=== PATIENT | female | born 1940 | race Caucasian/White ===

== ENCOUNTER 2016-06-22 19:33 | Emergency (ER) | payer MEDICARE ==
[~2016-06-22] VITALS: Ht 158.8 cm; Wt 80.0 kg
[~2016-06-22 19:33] MED LIST: AMLO5TAB22 PO; CARV12.5 PO; CLOP75 PO; COUM3TAB PO; IMDUR PO; LATA.005%O EACH EYE; LISI40TA PO; NEUR100C PO; NITR0.4S SL
[2016-06-22 19:34] VITALS: BP 231/106; PULSE 120; RESP 16; TEMP 97.6; O2SAT 94
[2016-06-22 19:48] VITALS: BP 188/85; PULSE 149; RESP 24; O2SAT 93
--- NOTE | 2016-06-22 20:20 | RADRPT ---
EXAM DATE/TIME: 06/22/2016 20:08 [facility] COMPARISON: CHEST SINGLE AP, October 06, 2015, 1:45. INDICATIONS : Chest pains. MEDICAL HISTORY : None. SURGICAL HISTORY : Stent placement less then 6 months ago. ENCOUNTER: Initial ACUITY: 1 day PAIN SCORE: 7/10 LOCATION: Bilateral upper back. FINDINGS: A single view of the chest demonstrates the lungs to be symmetrically aerated without evidence of mas s, infiltrate or effusion. The cardiomediastinal contours are unremarkable. Osseous structures are intact. CONCLUSION: The lungs are clear. Vishal Amado MD on June 22, 2016 at 20:18 Board Certified Radiologist. This report was verified electronically.
--- NOTE | 2016-06-22 20:29 | PD ---
HPI Chief Complaint: Respiratory Symptoms Time Seen by Provider: 19:50 Travel History International Travel<30 days: No Contact w/Intl Traveler<30days: No Traveled to known affect area: No History of Present Illness HPI 76-year-old female complains of chest pain and left upper back pain. Patient states that she was sitting down watching TV this evening when he started having feeling hot, weakness, and then sharp stabbing pain started on the left upper back with radiation to left front. Patient denies any fever coughing congestion. Patient states that the pain lasted about half an hour and resolved completely. Patient denies any chest pain now. Patient states that she still has some shortness of breath. Patient has history of atrial fibrillation is on Coumadin. Patient has history hypertension, elevated triglycerides. Patient states that she stopped smoking 3 years ago. Patient has history of CAD status post IN and stent placement. 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) Family History Family Myocardial Infarction: Yes Social History Alcohol Use: No Tobacco Use: No Substance Use: No Allergies-Medications (Allergen,Severity, Reaction): Coded Allergies: Niacin (Verified Adverse Reaction, Intermediate, flushing, 06/22/16) Tricor (Verified Adverse Reaction, Intermediate, myalgia, 06/22/16) Reported Meds & Prescriptions Reported Meds & Active Scripts Active Reported Isosorbide Mononitrate ER (Isosorbide Mononitrate) 30 Mg Jennifer 30 Mg PO DAILY Vitamin D3 (Cholecalciferol) 2,000 Unit Cap 4,000 Units PO DAILY Clopidogrel (Clopidogrel Bisulfate) 75 Mg Tab 75 Mg PO DAILY Latanoprost Opth Drops (Latanoprost) 0.005% Drops 1 Drop EACH EYE HS Refrigerate until opened. Gabapentin 100 Mg Cap 100 Mg PO QID Atorvastatin (Atorvastatin Calcium) 40 Mg Tab 40 Mg PO HS Lisinopril 40 Mg Tab 40 Mg PO DAILY Hydrochlorothiazide 25 Mg Tab 25 Mg PO DAILY Carvedilol 12.5 Mg Tab 12.5 Mg PO BID Amlodipine (Amlodipine Besylate) 5 Mg Tab 5 Mg PO DAILY Acetaminophen 500 Mg Cap 1,000 Mg PO Q4-6H PRN Warfarin 3 Mg Tab 4.5 Mg PO WE,FR Warfarin 3 Mg Tab 3 Mg PO DANIELS,MO,TU,THR,SA Review of Systems General / Constitutional: No: Fever Eyes: No: Visual changes HENT: No: Headaches Cardiovascular: Positive: Chest Pain or Discomfort Respiratory: Positive: Shortness of Breath Gastrointestinal: No: Abdominal Pain Genitourinary: No: Dysuria Musculoskeletal: No: Pain Skin: No Rash Neurologic: No: Weakness Psychiatric: No: Depression Endocrine: No: Polydipsia Hematologic/Lymphatic: No: Easy Bruising Physical Exam Narrative GENERAL: Well-nourished, well-developed patient. SKIN: Warm and dry. HEAD: Normocephalic. EYES: No scleral icterus. No injection or drainage. NECK: Supple, trachea midline. No JVD or lymphadenopathy. CARDIOVASCULAR: Irregularly irregular tachycardia rate and rhythm without murmurs, gallops, or rubs. RESPIRATORY: Breath sounds equal bilaterally. No accessory muscle use. GASTROINTESTINAL: Abdomen soft, non-tender, nondistended. MUSCULOSKELETAL: No cyanosis, or edema. BACK: Nontender without obvious deformity. No CVA tenderness. Neurologic exam normal. Data Data Last Documented VS Vital Signs Date Time Temp Pulse Resp B/P Pulse Ox O2 Delivery O2 Flow Rate FiO2 06/22/16 21:34 116 24 153/92 93 Room Air 06/22/16 19:34 97.6 Orders Electrocardiogram (06/22/16 19:58) Complete Blood Count With Diff (06/22/16 19:58) Comprehensive Metabolic Panel (06/22/16 19:58) Creatine Kinase (Cpk) (06/22/16 19:58) Troponin I (06/22/16 19:58) B-Type Natriuretic Peptide (06/22/16 19:58) Prothrombin Time / Inr (Pt) (06/22/16 19:58) Act Partial Throm Time (Ptt) (06/22/16 19:58) Urinalysis - C+S If Indicated (06/22/16 19:58) D-Dimer (1/28/17 19:58) Thyroid Stimulating Hormone (06/22/16 19:58) Chest, Single Ap (06/22/16 19:58) Iv Access Insert/Monitor (06/22/16 19:58) Ecg Monitoring (06/22/16 19:58) Oximetry (06/22/16 19:58) Ct Pulmonary Angiogram (06/22/16 19:59) Diltiazem Inj (Cardizem Inj) (06/22/16 20:30) Iodixanol 320 Inj (Rad Ct) (Visipaque 32 (06/22/16 22:55) Labs Laboratory Tests Test 06/22/16 06/22/16 20:08 21:49 White Blood Count 7.5 TH/MM3 Red Blood Count 4.06 MIL/MM3 Hemoglobin 12.6 GM/DL Hematocrit 35.8 % Mean Corpuscular Volume 88.3 FL Mean Corpuscular Hemoglobin 31.0 PG Mean Corpuscular Hemoglobin 35.1 % Concent Red Cell Distribution Width 13.8 % Platelet Count 226 TH/MM3 Mean Platelet Volume 8.3 FL Neutrophils (%) (Auto) 54.8 % Lymphocytes (%) (Auto) 37.2 % Monocytes (%) (Auto) 4.8 % Eosinophils (%) (Auto) 2.5 % Basophils (%) (Auto) 0.7 % Neutrophils # (Auto) 4.1 TH/MM3 Lymphocytes # (Auto) 2.8 TH/MM3 Monocytes # (Auto) 0.4 TH/MM3 Eosinophils # (Auto) 0.2 TH/MM3 Basophils # (Auto) 0.1 TH/MM3 CBC Comment DIFF FINAL Differential Comment Prothrombin Time 22.1 SEC Prothromb Time International 1.9 RATIO Ratio Activated Partial 34.0 SEC Thromboplast Time D-Dimer Quantitative (PE/DVT) 0.36 MG/L FEU Sodium Level 137 MEQ/L Potassium Level 3.8 MEQ/L Chloride Level 103 MEQ/L Carbon Dioxide Level 25.9 MEQ/L Anion Gap 8 MEQ/L Blood Urea Nitrogen 35 MG/DL Creatinine 1.43 MG/DL Estimat Glomerular Filtration 35 ML/MIN Rate Random Glucose 195 MG/DL Calcium Level 9.0 MG/DL Total Bilirubin 0.2 MG/DL Aspartate Amino Transf 16 U/L (AST/SGOT) Alanine Aminotransferase 23 U/L (ALT/SGPT) Alkaline Phosphatase 89 U/L Total Creatine Kinase 72 U/L Troponin I LESS THAN 0.02 NG/ML B-Type Natriuretic Peptide 150 PG/ML Total Protein 8.1 GM/DL Albumin 3.8 GM/DL Thyroid Stimulating Hormone 1.510 uIU/ML 3rd Gen Urine Color LIGHT-YELLOW Urine Turbidity CLEAR Urine pH 5.5 Urine Specific [place] 1.010 Urine Protein 30 mg/dL Urine Glucose (UA) NEG mg/dL Urine Ketones NEG mg/dL Urine Occult Blood NEG Urine Nitrite NEG Urine Bilirubin NEG Urine Urobilinogen LESS THAN 2.0 MG/DL Urine Leukocyte Esterase NEG Urine RBC 1 /hpf Urine WBC 1 /hpf Urine Squamous Epithelial <1 /hpf Cells Urine Mucus FEW /lpf Microscopic Urinalysis Comment CULT NOT INDICATED MDM Medical Decision Making Medical Screen Exam Complete: Yes Emergency Medical Condition: Yes Interpretation(s) 2027 PM. EKG shows atrial fibrillation with RVR rate 125. 23:[address] Angiography 06/22/161958 Signed Impressions: Service Date/Time: Wednesday, June 22, 2016 22:49 - CONCLUSION: The study is negative for pulmonary embolism. Vishal Amado MD Chest X-Ray 06/22/161957 Signed Impressions: Service Date/Time: Wednesday, June 22, 2016 20:08 - CONCLUSION: The lungs are clear. Vishal Amado MD 23:22 PM. CBC within normal limit. BUN 35. Creatinine 1.43. Cardiac enzymes are normal. BNP 150. INR 1.9. UA is negative. Differential Diagnosis Differential diagnosis including musculoskeletal, pleurisy, angina, IN, PE, pneumothorax. Narrative Course 76-year-old female with short period of sharp stabbing pain in the left upper back with radiation to left chest which has resolved since then. Patient has history of atrial fibrillation on Coumadin. Patient is tachycardic with A. fib and RVR. Patient has elevated blood pressure. Cardizem 10 g IV given. Diagnosis Primary Impression: Atypical chest pain Additional Impressions: Atrial fibrillation with RVR Uncontrolled hypertension Patient Instructions: General Instructions Additional Instructions: Continue with medications as directed. Follow-up with personal physician. Return if persistent elevated blood pressure, elevated pulse, chest pain shortness of breath. Med/Other Pt SpecificInfo: No Change to Meds Disposition: 01 DISCHARGE HOME Condition: Stable Vish Hart MD Jun 22, 2016 20:29
[2016-06-22] MEDS ORDERED: DILTIAZEM HCL 25 MG/5 ML VIAL IV ONE (20:30)
[2016-06-22 20:35] VITALS: BP 144/72; PULSE 100; RESP 24; O2SAT 92
[2016-06-22 21:13] LABS: AUTOMATED NEUTROPHIL # 4.1 TH/MM3 (1.8-7.7); BASOPHIL # 0.1 TH/MM3 (0-0.2); BASOPHIL % 0.7 % (0.0-2.0); EOSINOPHIL # 0.2 TH/MM3 (0-0.4); EOSINOPHIL % 2.5 % (0.0-4.0); HEMATOCRIT 35.8 % (35.0-46.0); HEMO FLAGS DIFF FINAL; LYMPH % 37.2 % (9.0-44.0); LYMPHOCYTE # 2.8 TH/MM3 (1.0-4.8); MEAN CELL VOLUME 88.3 FL (80.0-100.0); MEAN CORPUSCULAR HGB CONC 35.1 % (32.0-36.0); MONO % 4.8 % (0.0-8.0); NEUT % 54.8 % (16.0-70.0); PLATELET COUNT 226 TH/MM3 (150-450); RED BLOOD COUNT 4.06 MIL/MM3 (4.00-5.30); RED CELL DISTRIBUTION WIDTH 13.8 % (11.6-17.2); WHITE BLOOD COUNT 7.5 TH/MM3 (4.0-11.0)
[2016-06-22 21:34] VITALS: BP 153/92; PULSE 116; RESP 24; O2SAT 93
[2016-06-22 21:38] LABS: INTERNATIONAL NORMALIZED RATIO 1.9 RATIO; PROTHROMBIN TIME - PATIENT 22.1 SEC (9.8-11.6)
[2016-06-22] MEDS ORDERED: ACET500C PO (22:03)
[2016-06-22] MEDS ORDERED: HYDR25TA5 PO (22:03)
[2016-06-22] MEDS ORDERED: CLOP75TA PO (22:03)
[2016-06-22] MEDS ORDERED: WARF-58 PO ×2 (22:03)
[2016-06-22] MEDS ORDERED: LISI40TA PO (22:03)
[2016-06-22] MEDS ORDERED: LATA0.002 EACH EYE (22:03)
[2016-06-22] MEDS ORDERED: ATOR40TA16 PO (22:03)
[2016-06-22] MEDS ORDERED: CARV12.52 PO (22:03)
[2016-06-22] MEDS ORDERED: GABA100C4 PO (22:03)
[2016-06-22] MEDS ORDERED: ISOS30TA3 PO (22:03)
[2016-06-22] MEDS ORDERED: AMLO5TAB2 PO (22:03)
[2016-06-22] MEDS ORDERED: VITA2000 PO (22:03)
[2016-06-22 22:18] LABS: ALKALINE PHOSPHATASE 89 U/L (45-117); ALT (GPT) 23 U/L (10-53); ANION GAP 8 MEQ/L (5-15); AST (GOT) 16 U/L (15-37); BICARBONATE 25.9 MEQ/L (21.0-32.0); BLOOD UREA NITROGEN 35 MG/DL (7-18); CHLORIDE 103 MEQ/L (98-107); GLOMERULAR FILTRATION RATE 35 ML/MIN (>89); POTASSIUM 3.8 MEQ/L (3.5-5.1); SODIUM (NA) 137 MEQ/L (136-145); TOTAL BILIRUBIN ADULT 0.2 MG/DL (0.2-1.0)
[2016-06-22 22:19] LABS: CREATINE KINASE 72 U/L (26-192)
[2016-06-22 22:53] LABS: BLOOD, URINE NEG (NEG); COMMENT (UR) CULT NOT INDICATED; CULTURE IF INDICATED CULT NOT INDICATED; GLUCOSE,URINE NEG (NEG); KETONE, URINE NEG (NEG); MUCUS URINE FEW /lpf (OCC); NITRITE,URINE NEG (NEG); PH, URINE 5.5 (5.0-8.5); SQUAMOUS EPITHELIAL CELL URINE <1 /hpf (0-5); URINE COLOR LIGHT-YELLOW (YELLW/STRAW)
[2016-06-22] MEDS ORDERED: IODIXANOL 320 MG/ML 10 ML VIAL (for Rad CT) IV ONE (22:55)
--- NOTE | 2016-06-22 23:06 | RADRPT ---
EXAM DATE/TIME: 06/22/2016 22:49 [facility] COMPARISON: CHEST SINGLE AP, June 22, 2016, 20:08. INDICATIONS : Seizures for 5 days with falls. Shortness of breath. IV CONTRAST: 50 cc Visipaque (iodixanol) IV RADIATION DOSE: 16.97 CTDIvol (mGy) MEDICAL HISTORY : Myocardial infarction. Hypertension. Schizophrenia. CVA. SURGICAL HISTORY : Tubal ligation. Coronary artery stent.Appendectomy.Cardiac catherization. ENCOUNTER: Initial ACUITY: 4 - 6 days PAIN SCALE: 0/10 LOCATION: chest TECHNIQUE: Volumetric scanning of the chest was performed using a pulmonary embolism protocol MIP images were re constructed. Using automated exposure control and adjustment of the mA and/or kV according to patien t size, radiation dose was kept as low as reasonably achievable to obtain optimal diagnostic quality images. FINDINGS: PULMONARY ARTERIES: No filling defects are seen in the pulmonary arteries through the segmental level. LUNGS: No gross abnormality; there is some respiratory motion artifact creating double densities in the ante rior lower lungs and cannot exclude small infiltrates in that area. PLEURAE: There is no pleural thickening or pleural effusion. MEDIASTINUM: There is good visualization of the great vessels of the middle mediastinum. No evidence of mediastin al or hilar adenopathy/mass. CONCLUSION: The study is negative for pulmonary embolism. Vishal Amado MD on June 22, 2016 at 23:03 Board Certified Radiologist. This report was verified electronically.
[2016-06-22 23:43] VITALS: BP 180/77
--- NOTE | 2016-06-23 12:33 | EKG ---
Date Performed: 06/22/2016 Time Performed: 20:12:15 PTAGE: 76 years EKG: ATRIAL FIBRILLATION WITH RAPID VENTRICULAR RESPONSE NONSPECIFIC ST & T-WAVE ABNORMALITY ABN ORMAL RHYTHM ECG PREVIOUS TRACING : 10/06/2015 06.23 Compared to previous tracing, atrial fibrillation with rVR is new. Nonspecific ST-T wave changes are also now noted. DOCTOR: Felipe Gerber Interpretating Date/Time 06/23/2016 12:32:34
== END 2016-06-22 23:59 | disposition home or self-care (01) ==
LOC: NEPE 19:33
DX: R07.89 Other chest pain (principal); I48.91 Unspecified atrial fibrillation; I10 Essential (primary) hypertension; I25.2 Old myocardial infarction; R06.02 Shortness of breath; Z79.01 Long term (current) use of anticoagulants; Z87.891 Personal history of nicotine dependence
CPT/HCPCS: 71010; 71275; 80053; 81001; 82550; 83880; 84443; 84484; 85025; 85379; 85610; 85730; 93005; 96374; 99285; Q9967

== ENCOUNTER 2016-12-01 14:55 | Emergency (ER) | payer MEDICARE ==
[~2016-12-01] VITALS: Ht 160 cm; Wt 80.0 kg
[~2016-12-01 14:55] MED LIST changes: +ACET500C PO; +AMLO5TAB2 PO; -AMLO5TAB22 PO; +ATOR40TA16 PO; -CARV12.5 PO; +CARV12.52 PO; -CLOP75 PO; +CLOP75TA PO; -COUM3TAB PO; +GABA100C4 PO; +HYDR25TA5 PO; -IMDUR PO; +ISOS30TA3 PO; -LATA.005%O EACH EYE; +LATA0.002 EACH EYE; -NEUR100C PO; -NITR0.4S SL; +VITA2000 PO; +WARF-58 PO
[2016-12-01 14:59] VITALS: BP 202/85; PULSE 98; RESP 22; TEMP 98.5; O2SAT 95
[2016-12-01 15:32] VITALS: BP 177/81; PULSE 93; RESP 16; O2SAT 96
[2016-12-01] MEDS ORDERED: MORPHINE SULFATE 4 MG/ML INJ IV PUSH ONE (16:00)
[2016-12-01] MEDS ORDERED: ONDANSETRON HCL 4 MG/2 ML VIAL IV ONE (16:00)
--- NOTE | 2016-12-01 16:17 | PD ---
HPI Chief Complaint: Pain: Acute or Chronic Time Seen by Provider: 15:37 Travel History International Travel<30 days: No Contact w/Intl Traveler<30days: No Traveled to known affect area: No History of Present Illness HPI The patient was seen and examined in the presence of the nurse. This patient complains of right sided breast pain. She's had several months of intermittent right nipple bleeding. She does follow with breast surgeon Dr. Valdes. The patient reports that Dr. Valdes did some biopsies that did not reveal any cancer. The patient does not know why she's had the bleeding problem from the nipple. She is on Coumadin for cardiac reasons. He complains of 2 days of breast swelling and engorgement and pain. She's had no fever or redness or warmth of the breast. Symptoms severity is moderate. No alleviating factors. 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) Family History Family Myocardial Infarction: Yes Social History Alcohol Use: No Tobacco Use: No Substance Use: No Allergies-Medications (Allergen,Severity, Reaction): Coded Allergies: Niacin (Verified Adverse Reaction, Intermediate, flushing, 12/01/16) Tricor (Verified Adverse Reaction, Intermediate, myalgia, 12/01/16) Reported Meds & Prescriptions Reported Meds & Active Scripts Active Percocet (Oxycodone-Acetaminophen) 5-325 mg Tab 1 Tab PO Q6H PRN Bactrim DS (Sulfamethoxazole-Trimethoprim) 800-160 Mg Tab 1 Tab PO BID Reported Isosorbide Mononitrate ER (Isosorbide Mononitrate) 30 Mg Jennifer 30 Mg PO DAILY Vitamin D3 (Cholecalciferol) 2,000 Unit Cap 4,000 Units PO DAILY Clopidogrel (Clopidogrel Bisulfate) 75 Mg Tab 75 Mg PO DAILY Latanoprost Opth Drops (Latanoprost) 0.005% Drops 1 Drop EACH EYE HS Refrigerate until opened. Gabapentin 100 Mg Cap 100 Mg PO QID Atorvastatin (Atorvastatin Calcium) 40 Mg Tab 40 Mg PO HS Lisinopril 40 Mg Tab 40 Mg PO DAILY Hydrochlorothiazide 25 Mg Tab 25 Mg PO DAILY Carvedilol 12.5 Mg Tab 12.5 Mg PO BID Amlodipine (Amlodipine Besylate) 5 Mg Tab 5 Mg PO DAILY Acetaminophen 500 Mg Cap 1,000 Mg PO Q4-6H PRN Warfarin 3 Mg Tab 4.5 Mg PO WE,FR Warfarin 3 Mg Tab 3 Mg PO DANIELS,MO,TU,THR,SA Review of Systems General / Constitutional: No: Fever Eyes: No: Visual changes HENT: No: Headaches Cardiovascular: No: Chest Pain or Discomfort Respiratory: No: Shortness of Breath Gastrointestinal: No: Abdominal Pain Genitourinary: No: Dysuria Musculoskeletal: Positive: Pain Skin: No Rash Neurologic: No: Weakness Psychiatric: No: Depression Endocrine: No: Polydipsia Hematologic/Lymphatic: No: Easy Bruising Physical Exam Narrative GENERAL: Well-nourished, well-developed patient with right breast pain and swelling . SKIN: Focused skin assessment reveals no rash and nodules. Skin is Warm and dry. HEAD: Atraumatic. Normocephalic. EYES: Pupils equal and round. No scleral icterus. No injection or drainage. ENT: No nasal bleeding or discharge. Mucous membranes pink and moist. NECK: Trachea midline. No JVD. CARDIOVASCULAR: Regular rate and rhythm. No murmur appreciated. RESPIRATORY: No accessory muscle use. Clear to auscultation. Breath sounds equal bilaterally. GASTROINTESTINAL: Abdomen soft, non-tender, nondistended. Hepatic and splenic margins not palpable. MUSCULOSKELETAL: No obvious deformities. No clubbing. No cyanosis. No edema. NEUROLOGICAL: Awake and alert. No obvious cranial nerve deficits. Motor grossly within normal limits. Normal speech. PSYCHIATRIC: Appropriate mood and affect; insight and judgment normal. Breast: Right breast is swollen and engorged and tender compared to the left. There is no erythema or warmth or sign of infection. No discharge from the nipple. Data Data Last Documented VS Vital Signs Date Time Temp Pulse Resp B/P Pulse Ox O2 Delivery O2 Flow Rate FiO2 12/01/16 15:32 93 16 177/81 96 Room Air 12/01/16 14:59 98.5 Orders Iv Access Insert/Monitor (12/01/16 15:59) Complete Blood Count With Diff (12/01/16 15:59) Prothrombin Time / Inr (Pt) (12/01/16 15:59) Ondansetron Inj (Zofran Inj) (12/01/16 16:00) Morphine Inj (Morphine Inj) (12/01/16 16:00) Labs Laboratory Tests Test 12/01/16 16:10 White Blood Count 16.2 TH/MM3 Red Blood Count 4.47 MIL/MM3 Hemoglobin 13.0 GM/DL Hematocrit 39.9 % Mean Corpuscular Volume 89.3 FL Mean Corpuscular Hemoglobin 29.0 PG Mean Corpuscular Hemoglobin 32.5 % Concent Red Cell Distribution Width 13.0 % Platelet Count 234 TH/MM3 Mean Platelet Volume 8.5 FL Neutrophils (%) (Auto) 84.9 % Lymphocytes (%) (Auto) 7.7 % Monocytes (%) (Auto) 6.3 % Eosinophils (%) (Auto) 0.6 % Basophils (%) (Auto) 0.5 % Neutrophils # (Auto) 13.8 TH/MM3 Lymphocytes # (Auto) 1.3 TH/MM3 Monocytes # (Auto) 1.0 TH/MM3 Eosinophils # (Auto) 0.1 TH/MM3 Basophils # (Auto) 0.1 TH/MM3 CBC Comment DIFF FINAL Differential Comment Prothrombin Time 33.8 SEC Prothromb Time International 2.9 RATIO Ratio MDM Medical Decision Making Medical Screen Exam Complete: Yes Emergency Medical Condition: Yes Medical Record Reviewed: Yes Differential Diagnosis Seroma, hematoma, mastitis Narrative Course I have reviewed the patient's electronic medical record. I reviewed her blood work from May 2016. At that point hemoglobin was 12.6 IV placed CBC reveals a hemoglobin of 13 INR on Coumadin is 2.9 which is therapeutic I gave her dose of IV morphine and Zofran for symptom relief Patient has no fever or tachycardia or hypotension I think most likely she has a right breast seroma. I doubt that is a hematoma. She has not dropped her blood count and has normal vitals but given her Coumadin use that is a consideration. I don't think that infection is any part of this but to cover multiple possibilities I have prescribed some Bactrim. She plans on calling her breast physician tomorrow for follow-up She will return if she worsens I wrote her some medication for pain and some antibiotics Diagnosis Primary Impression: Breast pain, right Additional Impression: Seroma of breast Additional Instructions: The patient was advised to follow up with their breast physician and return if they worsen. The patient was warned about potential sedation for the medications they will receive on prescription. Med/Other Pt SpecificInfo: Prescription(s) given Scripts Oxycodone-Acetaminophen (Percocet)5-325 mg Tab1 Tab PO Q6H PRN (PAIN) #20 TAB Ref 0 Prov:Osbaldo García MD 12/01/16 Sulfamethoxazole-Trimethoprim (Bactrim DS)800-160 Mg Tab1 Tab PO BID #14 TAB Ref 0 Prov:Osbaldo García MD 12/01/16 Disposition: 01 DISCHARGE HOME Condition: Stable Osbaldo García MD Dec 01, 2016 16:17
[2016-12-01 16:39] LABS: AUTOMATED NEUTROPHIL # 13.8 TH/MM3 (1.8-7.7); BASOPHIL # 0.1 TH/MM3 (0-0.2); BASOPHIL % 0.5 % (0.0-2.0); EOSINOPHIL # 0.1 TH/MM3 (0-0.4); EOSINOPHIL % 0.6 % (0.0-4.0); HEMATOCRIT 39.9 % (35.0-46.0); HEMO FLAGS DIFF FINAL; INTERNATIONAL NORMALIZED RATIO 2.9 RATIO; LYMPH % 7.7 % (9.0-44.0); LYMPHOCYTE # 1.3 TH/MM3 (1.0-4.8); MEAN CELL VOLUME 89.3 FL (80.0-100.0); MEAN CORPUSCULAR HGB CONC 32.5 % (32.0-36.0); MONO % 6.3 % (0.0-8.0); NEUT % 84.9 % (16.0-70.0); PLATELET COUNT 234 TH/MM3 (150-450); PROTHROMBIN TIME - PATIENT 33.8 SEC (9.8-11.6); RED BLOOD COUNT 4.47 MIL/MM3 (4.00-5.30); WHITE BLOOD COUNT 16.2 TH/MM3 (4.0-11.0)
[2016-12-01] MEDS ORDERED: BACT800T5 PO (16:44)
[2016-12-01] MEDS ORDERED: PERC5TAB12 PO (16:44)
[2016-12-01] MEDS ORDERED: ACET-898 PO (17:08)
== END 2016-12-01 17:57 | disposition home or self-care (01) ==
LOC: NEPD 14:55
DX: N64.4 Mastodynia (principal); N64.89 Other specified disorders of breast; E11.9 Type 2 diabetes mellitus without complications; I10 Essential (primary) hypertension; I48.91 Unspecified atrial fibrillation; I25.2 Old myocardial infarction; Z79.01 Long term (current) use of anticoagulants; Z86.73 Personal history of transient ischemic attack (TIA), and cerebral infarction without residual deficits; Z79.899 Other long term (current) drug therapy
CPT/HCPCS: 85025; 85610; 96374; 96375; 99284; J2270; J2405

== ENCOUNTER → 2016-12-06 | Day surgery (SDC) | payer MEDICARE ==
[~2016-12-06] VITALS: Ht 160 cm; Wt 84.9 kg
[~2016-12-06] MED LIST changes: +*RESP: ALBUTEROL 2.5 MG/3 ML NEB (PRN) PERIprocedural Use ONLY NEB ONE; +ACET-898 PO; -ACET500C PO; +ACETAMINOPHEN/HYDROcodone 325 MG/5 MG TAB PO PRN; +BACT800T5 PO; +BUPIVACAINE HCL PF 0.5% 30 ML VIAL ONE; +CHLORHEXIDINE GLUCONATE 2 % 1 PACK (2 CLOTHS) TOPICAL PRN; +DO NOT ADM ANY ANTICOAGULANT DRUGS PRN; +FAMOTIDINE 20 MG/2 ML VIAL ONE; +GENTAMICIN SULFATE 80 MG/2 ML VIAL ONE; +INSULIN HUMAN REGULAR 1,000 UNITS/10 ML VIAL SQ PRN; +KETAMINE HCL 500 MG/5 ML VIAL ONE; +LACTATED RINGER'S 1000 ML INJ 1,000 ML IV ONE; +LACTATED RINGER'S 1000 ML IV PRN; +METOPROLOL TARTRATE 25 MG TAB PO PRN; +MIDAZOLAM HCL 2 MG/2 ML VIAL ONE; +MORPHINE SULFATE 4 MG/ML INJ ONE; +MORPHINE SULFATE 8 MG/ML INJ IV PUSH PRN; +ONDANSETRON HCL 4 MG/2 ML VIAL IV PUSH ONE; +ONDANSETRON HCL 4 MG/2 ML VIAL IV PUSH PRN; +ONDANSETRON HCL 4 MG/2 ML VIAL IV PUSH SCH; +PERC5TAB12 PO; +POVIDONE IODINE 5% (ANTISEPSIS KIT) 4 APPLICATIONS EACH NARE PRN; +PROPOFOL 200 MG/20 ML AMP IV ONE; +SODIUM CHLORID 0.9% 500 ML IV PRN; +ceFAZolin 2 GM PREMIX 50 ML IV SCH; +ePHEDrine/NS 25 MG/5 ML SYR IV ONE; +methylPREDNISolone SOD SUCC 125 MG/2 ML VIAL ONE
[2016-12-06 12:26] VITALS: BP 110/67; PULSE 103; RESP 24; TEMP 97.9; O2SAT 92
[2016-12-06 12:39] LABS: INTERNATIONAL NORMALIZED RATIO 1.6 RATIO
[2016-12-06 16:32] VITALS: BP 97/46; PULSE 52; RESP 20; TEMP 97.3; O2SAT 94
--- NOTE | 2016-12-06 22:20 | MP ---
cc: NISSA PARRA DATE OF SURGERY: 12/06/2016. PREOPERATIVE DIAGNOSIS: Right breast cellulitis. POSTOPERATIVE DIAGNOSIS: 1. Right breast cellulitis. 2. Right breast abscess. OPERATIVE PROCEDURE PERFORMED: Incision and drainage of right breast abscess and punch biopsy of the right breast and right nipple. SURGEON: Nissa Parra MD. PRIVATE CHEF: Jimi Caicedo, third year medical student. ANESTHESIA: TIVA. INDICATIONS FOR THE PROCEDURE The patient is a 76-year-old with multiple medical problems who has a chronic subareolar hematoma following an ultrasound-guided core biopsy of the right breast last year. She has had scant bloody drainage from the right nipple and a known a papilloma. Approximately five days ago, she developed increasing induration, pain, and pale erythema of the right breast. She was placed on antibiotics on June 05 but her symptoms have not improved. Office ultrasound demonstrated complex cystic masses in the ten o'clock and subareolar locations and she now presents for surgical drainage. FINDINGS AT SURGERY: A subareolar right breast abscess involving the nipple ducts and extending to the ten o'clock upper outer right breast was identified. The fluid was sent for culture and sensitivity. OPERATIVE PROCEDURE PERFORMED: After informed consent was obtained and site verification was performed, the patient was brought to the major operating room where she underwent IV sedation. The right breast was prepped and draped in sterile fashion. A 1-cm periareolar incision was created in the ten o'clock location and blunt dissection was performed until a cavity was identified in the ten o'clock location approximately 2 cm from the nipple. Purulent fluid was evacuated and sent for culture and sensitivity. The cavity was also explored in the subareolar location and more purulence was identified with drainage through the nipple ducts. Copious irrigation and suctioning was then performed and a punch biopsy of the areolar skin as well as the nipple was then performed using a 3-mm punch. Each of the biopsies were sent separately as permanent specimens. Hemostasis was easily obtained with the packing and minimal cauterization. The nipple biopsy site was closed using a single 3-0 nylon suture. An ABD pad was then applied over the wound. The patient tolerated the procedure well with minimal blood loss and she was brought to the recovery room in good condition. MD LUIS Damon/FRANK /2:59 PM /10:18 PM
== END | disposition home or self-care (01) ==
LOC: HSDC 11:40
PROVIDERS: ATTEND Surgery
DX: N61.1 Abscess of the breast and nipple (principal); B96.89 Other specified bacterial agents as the cause of diseases classified elsewhere; L30.8 Other specified dermatitis; I48.91 Unspecified atrial fibrillation; I10 Essential (primary) hypertension; I25.2 Old myocardial infarction
CPT/HCPCS: 00400; 19020; 85610; 87015; 87070; 87077; 87102; 87116; 87186; 87205; 87206; 88305; 94664; J0690; J2250; J2270; J2405; J2930; J7120; J7613; J1580